=== PATIENT | female | born 1960 | race Caucasian/White ===

== ENCOUNTER 2017-02-01 07:59 | Outpatient (CLI) | payer OTHER ==
[~2017-02-01 07:59] MED LIST: ALLEGRA ALLERG180 MG PO; BIOTIN1 MG; FIORICET 50-321 EACH PO; NORFLEX 100 MG PO; OSEL75CA PO; PREVACID30 MG PO; TENORMIN50 M1; TORADOL60 MG IM; VOLTAREM 50 MG PO; ZANTAC300 MG PO
== END 2017-02-01 08:14 | disposition home or self-care (01) ==
LOC: LAB 07:59
DX: I10 Essential (primary) hypertension (principal); R53.1 Weakness; M25.50 Pain in unspecified joint

== ENCOUNTER 2017-02-01 08:14 | Outpatient (CLI) | payer OTHER | END 2017-02-01 08:21 | disposition home or self-care (01) | LOC: MAMO-SONO 08:14 | DX: Z12.31 Encounter for screening mammogram for malignant neoplasm of breast (principal); N64.4 Mastodynia ==

== ENCOUNTER 2020-01-29 09:44 | Outpatient (CLI) | payer OTHER | END 2020-01-29 09:59 | disposition home or self-care (01) | LOC: MAMO-SONO 09:44 | PROVIDERS: ATTEND Specialist | DX: Z12.31 Encounter for screening mammogram for malignant neoplasm of breast (principal); N60.11 Diffuse cystic mastopathy of right breast; N60.12 Diffuse cystic mastopathy of left breast ==